=== PATIENT | female | born 1990 | race Two or more races ===

== ENCOUNTER 2019-04-11 16:25 | Inpatient (IN) | payer BC, OTHER ==
[~2019-04-11] VITALS: Ht 170.2 cm; Wt 128.6 kg
[2019-04-11] MEDS ORDERED: ONDANSETRON HCL 4 MG/2 ML VIAL ONE (17:57)
[2019-04-11] MEDS ORDERED: CLINDAMYCIN 600 MG/D5% WATER 50 ML IV ONE (18:05)
[2019-04-11] MEDS ORDERED: LIDOCAINE 2%-EPI 1:200,000 20 ML VIAL IJ ONE (18:05)
[2019-04-11] MEDS ORDERED: MORPHINE SULFATE 4 MG/1ML SYG ONE (18:06)
[2019-04-11 18:12] LABS: BASOPHILS % (AUTO) 0.3 % (0.0-5.0); EOSINOPHILS % (AUTO) 0.1 % (0.0-8.0); HEMATOCRIT 37.5 % (36-48); LYMPHOCYTES % (AUTO) 8.6 % (21.0-51.0); MEAN CORPUSCULAR HEMOGLOBIN 21.8 pg (27.0-33.0); MEAN CORPUSCULAR HGB CONC 31.4 g/dL (32.0-36.0); MEAN CORPUSCULAR VOLUME 69.2 fL (79-99); MONOCYTES % (AUTO) 5.2 % (3.0-13.0); NEUTROPHILS % (AUTO) 85.8 % (40.0-77.0); NUCLEATED RED BLOOD CELLS 0.1 % (0.0-0.19); PLATELET COUNT (AUTO) 622 K/uL (130-400); RED BLOOD CELL COUNT(AUTO) 5.41 MIL/uL (4.00-5.50); RED CELL DISTRIBUTION WIDTH 19.7 % (11.0-15.5); WHITE BLOOD COUNT (AUTO) 24.4 K/uL (4.8-10.8)
[2019-04-11 18:27] LABS: INR 1.02 (0.85-1.15); PARTIAL THROMBOPLASTIN TIME 29.2 SEC (26.3-35.5); PROTHROMBIN TIME 10.7 SEC (9.6-11.6)
[2019-04-11 18:37] LABS: CARBON DIOXIDE 26 mmol/L (21-32); CHLORIDE 100 mmol/L (101-111); CREATININE 1.1 mg/dL (0.5-1.5); GLOMERULAR FILTR. RATE CALC 62 mL/min (>60); GLUCOSE,RANDOM 117 mg/dL (70-105); POTASSIUM 3.5 mmol/L (3.5-5.1); SODIUM SERUM 137 mmol/L (136-145); UREA NITROGEN, BLOOD 16 mg/dL (7-18)
[2019-04-11 18:49] LABS: PLATELET MORPHOLOGY LARGE PLTS PRESENT
[2019-04-11 19:11] LABS: ALANINE AMINOTRANSFERASE 31 U/L (12-78); ALBUMIN 3.6 g/dL (3.5-5.0); ASPARTATE AMINOTRANSFERASE 26 U/L (10-37); BILIRUBIN,TOTAL 0.7 mg/dL (0.2-1.0); CREATINE KINASE, TOTAL 45 U/L (21-232); MYOGLOBIN 44 ng/mL (10-92); TOTAL PROTEIN, SERUM 8.8 g/dL (6.0-8.3); TROPONIN I < 0.04 ng/mL (0.00-0.06)
[2019-04-11 19:57] LABS: APPEARANCE,URINE CLOUDY (CLEAR); BILIRUBIN,URINE MODERATE (NEGATIVE); GLUCOSE, URINE (UA) NEGATIVE (NEGATIVE); KETONES,URINE 15 mg/dL (NEGATIVE); LEUKOCYTE ESTERASE ,URINE SMALL (NEGATIVE); NITRATE,URINE NEGATIVE (NEGATIVE); OCCULT BLOOD,URINE SMALL (NEGATIVE); PROTEIN,URINE 100 mg/dL (NEGATIVE)
[2019-04-11 19:58] LABS: COLOR,URINE DARK YELLOW (YELLOW)
[2019-04-11] MEDS: SODIUM CHLORIDE 0.9% 1000ML 1,000 ML IV SCH (20:06)
[2019-04-11 20:09] LABS: COARSE GRANULAR CASTS,URINE 0-2 /LPF (None Seen); SQUAMOUS EPITHELIAL CELL,UR Few /HPF (0-2)
[2019-04-11 20:10] LABS: HYALINE CASTS, URINE 0-1 /LPF (0-1 /LPF); MUCUS,URINE Many LPF (None Seen); TRICHOMONAS,URINE Few /LPF (None Seen)
[2019-04-11 20:11] LABS: BACTERIA,URINE Moderate /HPF (None Seen)
[2019-04-11] MEDS ORDERED: ACETAMINOPHEN 325 MG TAB PO PRN (20:15)
[2019-04-11] MEDS: FAMOTIDINE 20MG TAB 20 MG TAB PO SCH (21:00)
[2019-04-11] MEDS ORDERED: ACETAMINOPHEN 325 MG TAB ONE (21:05)
[2019-04-11] MEDS ORDERED: FAMOTIDINE 20MG TAB 20 MG TAB ONE (21:05)
[2019-04-11 21:45] VITALS: BP 139/73
[2019-04-11] MEDS: MORPHINE SULFATE 4 MG/1ML SYG IV PRN (23:08)
[2019-04-11 23:30] VITALS: BP 130/72
[2019-04-12 03:30] VITALS: BP 134/69
[2019-04-12] MEDS: CLINDAMYCIN 600 MG/D5% WATER 50 ML IV SCH ×3 (04:32→17:54)
[2019-04-12] MEDS: MORPHINE SULFATE 4 MG/1ML SYG IV PRN ×2 (04:55→11:10)
--- NOTE | 2019-04-12 05:00 | NUR ---
REINFORCED DRESSING I & D PROCEDURE DONE IN ED. PATIENT REPORTS DRESSING FELL OFF WHEN SHE WENT TO THE RESTROOM. APPLIED DRY GAUZE PADS, PACKING REMAINS IN PLACE. PAIN MEDICATION ADMINISTERED. REINFORCED SAFETY PRECAUTIONS, BED LOCKED IN LOWEST POSITION, CALL LIGHT WITHIN REACH.
[2019-04-12 05:13] LABS: HEMATOCRIT 34.5 % (36-48); MEAN CORPUSCULAR HEMOGLOBIN 21.7 pg (27.0-33.0); MEAN CORPUSCULAR HGB CONC 31.1 g/dL (32.0-36.0); MEAN CORPUSCULAR VOLUME 69.9 fL (79-99); PLATELET COUNT (AUTO) 695 K/uL (130-400); RED BLOOD CELL COUNT(AUTO) 4.94 MIL/uL (4.00-5.50); RED CELL DISTRIBUTION WIDTH 19.9 % (11.0-15.5); WHITE BLOOD COUNT (AUTO) 25.9 K/uL (4.8-10.8)
[2019-04-12 05:18] LABS: HEMOGLOBIN A1C 5.8 % (4.0-6.0)
[2019-04-12 05:22] LABS: ALBUMIN 3.1 g/dL (3.5-5.0); BILIRUBIN,TOTAL 0.6 mg/dL (0.2-1.0); CREATININE 0.9 mg/dL (0.5-1.5); POTASSIUM 3.7 mmol/L (3.5-5.1); TOTAL PROTEIN, SERUM 8.2 g/dL (6.0-8.3)
[2019-04-12 08:00] VITALS: BP 164/70
[2019-04-12] MEDS: FAMOTIDINE 20MG TAB 20 MG TAB PO SCH ×2 (10:00→20:20)
[2019-04-12] MEDS: MORPHINE SULFATE 2 MG/ML 1ML SYG IV PRN ×2 (10:01→21:33)
[2019-04-12] MEDS ORDERED: HYDRALAZINE HCL 20 MG/ML VIAL IV PRN (10:30)
--- NOTE | 2019-04-12 11:00 | NUR ---
MD ROUNDS DR. CARLSON VISITED WITH PATIENT. POC DISCUSSED. NEW ORDERS RECEIVED AND CARRIED OUT.
[2019-04-12 11:49] VITALS: BP 127/69
[2019-04-12] MEDS: HEPARIN SODIUM 5000UNIT/ML 1ML VIAL SQ SCH ×2 (11:55→21:42)
--- NOTE | 2019-04-12 12:05 | NUR ---
WOUND CULTURES SEND TO LAB.
--- NOTE | 2019-04-12 13:19 | NUR ---
DCP CM met with pt discussed dc plans. Pt is independent prior to admission, lives at home with boyfriend Nawaf Maurer. Denies any equipments/services. Pt feels safe to go back home, still drives and works, boyfriend able to assist with transportations and needs. DC plan to home once stable. CM to cont to follow up. Addendum: 04/12/19 at 1320 by JENNA CHAVIS LVN CM Amended: Links added.
[2019-04-12 16:00] VITALS: BP 132/85
[2019-04-12] MEDS: SODIUM CHLORIDE 0.9% 1000ML 1,000 ML IV SCH (16:18)
[2019-04-12 20:20] VITALS: BP 127/68
[2019-04-12 23:48] VITALS: BP 117/62
[2019-04-13] MEDS: CLINDAMYCIN 600 MG/D5% WATER 50 ML IV SCH ×3 (03:11→17:36)
[2019-04-13] MEDS: MORPHINE SULFATE 2 MG/ML 1ML SYG IV PRN ×2 (03:12→10:00)
[2019-04-13 04:10] VITALS: BP 118/63
[2019-04-13 06:17] LABS: HEMATOCRIT 30.2 % (36-48); MEAN CORPUSCULAR HEMOGLOBIN 22.1 pg (27.0-33.0); MEAN CORPUSCULAR HGB CONC 31.7 g/dL (32.0-36.0); MEAN CORPUSCULAR VOLUME 69.8 fL (79-99); PLATELET COUNT (AUTO) 512 K/uL (130-400); RED BLOOD CELL COUNT(AUTO) 4.33 MIL/uL (4.00-5.50); RED CELL DISTRIBUTION WIDTH 19.8 % (11.0-15.5)
[2019-04-13 06:34] LABS: CREATININE 0.7 mg/dL (0.5-1.5); POTASSIUM 3.4 mmol/L (3.5-5.1)
[2019-04-13 07:30] VITALS: BP 120/72
[2019-04-13] MEDS: FAMOTIDINE 20MG TAB 20 MG TAB PO SCH ×2 (09:59→22:12)
[2019-04-13] MEDS: HEPARIN SODIUM 5000UNIT/ML 1ML VIAL SQ SCH ×2 (10:30→23:49)
[2019-04-13 11:00] VITALS: BP 121/73
[2019-04-13] MEDS: SODIUM CHLORIDE 0.9% 1000ML 1,000 ML IV SCH ×2 (12:28→22:06)
--- NOTE | 2019-04-13 14:00 | NUR ---
CM Note: follow up CM met with pt aware family and pt will have to be taught how to do dressing changes at home. Pt states she will have boyfriend come so that nurse can teach how to do dressing. Made aware anticipated dcp plan 24-48hrs pending ID abx recs. Pt verbalized understanding. Primary nurse aware. CM to cont to follow up.
[2019-04-13] MEDS: LEVOFLOXACIN 750 MG TABLET PO SCH (14:12)
[2019-04-13 16:00] VITALS: BP 143/101
[2019-04-13] MEDS: MORPHINE SULFATE 4 MG/1ML SYG IV PRN (17:37)
[2019-04-13 19:10] VITALS: BP 109/59
--- NOTE | 2019-04-13 21:35 | NUR ---
WOUND CARE REMOVED IODEFORM FROM ABSCESS. CLEANED WITH SALINE, PAT DRIED. IODEFORM INSERTED INTO ABSCESS. COVERED WITH GAUZE AND SECURED WITH TAPE. PATIENT TOLERATED WELL, SLIGHT DISCOMFORT AND PAIN REPORTED. PHOTO OF WOUND TAKEN AND IN THE CHART.
[2019-04-14] VITALS (7 sets, daily range): BP systolic 109–128; BP diastolic 68–85
[2019-04-14] MEDS: MORPHINE SULFATE 2 MG/ML 1ML SYG IV PRN ×3 (01:00→22:08)
[2019-04-14] MEDS: CLINDAMYCIN 600 MG/D5% WATER 50 ML IV SCH ×3 (02:25→17:48)
[2019-04-14 06:07] LABS: HEMATOCRIT 30.8 % (36-48); MEAN CORPUSCULAR HEMOGLOBIN 21.6 pg (27.0-33.0); MEAN CORPUSCULAR HGB CONC 31.2 g/dL (32.0-36.0); MEAN CORPUSCULAR VOLUME 69.3 fL (79-99); NUCLEATED RED BLOOD CELLS 0.1 % (0.0-0.19); PLATELET COUNT (AUTO) 533 K/uL (130-400); RED BLOOD CELL COUNT(AUTO) 4.44 MIL/uL (4.00-5.50); RED CELL DISTRIBUTION WIDTH 19.7 % (11.0-15.5); WHITE BLOOD COUNT (AUTO) 11.3 K/uL (4.8-10.8)
[2019-04-14 06:22] LABS: CREATININE 0.7 mg/dL (0.5-1.5); POTASSIUM 3.3 mmol/L (3.5-5.1)
[2019-04-14] MEDS: ONDANSETRON HCL 4 MG/2 ML VIAL IV PRN (09:21)
[2019-04-14] MEDS: FAMOTIDINE 20MG TAB 20 MG TAB PO SCH ×2 (09:31→22:01)
[2019-04-14] MEDS ORDERED: POTASSIUM CHLORIDE 20 MEQ ERTAB PO SCH (09:45)
[2019-04-14] MEDS: HEPARIN SODIUM 5000UNIT/ML 1ML VIAL SQ SCH ×2 (10:42→22:02)
[2019-04-14] MEDS: SODIUM CHLORIDE 0.9% 1000ML 1,000 ML IV SCH ×2 (13:17→22:00)
[2019-04-14] MEDS: LEVOFLOXACIN 750 MG TABLET PO SCH (13:18)
[2019-04-15 00:05] VITALS: BP 124/79
[2019-04-15] MEDS: CLINDAMYCIN 600 MG/D5% WATER 50 ML IV SCH ×3 (02:14→18:02)
[2019-04-15] MEDS: SODIUM CHLORIDE 0.9% 1000ML 1,000 ML IV SCH ×2 (04:06→14:06)
[2019-04-15 04:10] VITALS: BP 122/76
[2019-04-15 06:30] LABS: HEMATOCRIT 31.9 % (36-48); MEAN CORPUSCULAR HGB CONC 31.5 g/dL (32.0-36.0); MEAN CORPUSCULAR VOLUME 69.8 fL (79-99); PLATELET COUNT (AUTO) 508 K/uL (130-400); RED BLOOD CELL COUNT(AUTO) 4.57 MIL/uL (4.00-5.50); RED CELL DISTRIBUTION WIDTH 19.8 % (11.0-15.5); WHITE BLOOD COUNT (AUTO) 11.8 K/uL (4.8-10.8)
[2019-04-15 06:40] LABS: CREATININE 0.7 mg/dL (0.5-1.5); POTASSIUM 3.5 mmol/L (3.5-5.1)
--- NOTE | 2019-04-15 07:50 | NUR ---
PATIENT UPDATE PT WITH DISCHARGE ORDERS TO GO HOME BUT NEED SOMEBODY TO BE TRAINED TO DO HER DRESSING CHANGE ON THE LEFT BUTTOCK WOUND. PACKING SUPPOSED TO HAVE FALLEN AT SHIFT CHANGE AND SHE WAS ANXIOUSLY CALLING FOR SOMEBODY TO DO HER WOUND CARE. ADVISED TO MOVE HER BOWELS THEN TAKE A SHOWER, MORPHINE 2 MG GIVEN SLOW IV PUSH GIVEN BEFORE THE IODOFORM PACKING WAS INSERTED AFTER SITE WAS CLEANSED WITH SALINE. PT SCREAMING IN BETWEEN, CRYING IN BETWEEN, WITH HX OF ANXIETY AND DEPRESSION.
[2019-04-15 08:00] VITALS: BP 140/70
[2019-04-15] MEDS: MORPHINE SULFATE 4 MG/1ML SYG IV PRN (09:41)
[2019-04-15] MEDS: FAMOTIDINE 20MG TAB 20 MG TAB PO SCH (09:41)
[2019-04-15] MEDS: HEPARIN SODIUM 5000UNIT/ML 1ML VIAL SQ SCH (09:57)
[2019-04-15 12:00] VITALS: BP 119/72
[2019-04-15] MEDS: ONDANSETRON HCL 4 MG/2 ML VIAL IV PRN (12:38)
[2019-04-15] MEDS: LEVOFLOXACIN 750 MG TABLET PO SCH (13:28)
[2019-04-15] MEDS: MORPHINE SULFATE 2 MG/ML 1ML SYG IV PRN (13:29)
[2019-04-15 16:00] VITALS: BP 144/95
--- NOTE | 2019-04-15 17:00 | NUR ---
cm note met with patient and state unable to have anyone assist with her wound care, has tried multiple people. spoke to Jean Claude adorno CM director. and received approval for wound care center, and ED on Thursday and thursday for pt to come in and receive the wound care. updated pt on appt times for weekends,thru ER and appt Thursday for 1st visit at wound center. pt verbalizes understanding. provided info in writing to pt. udpated primary nurse Rob.
--- NOTE | 2019-04-15 20:30 | NUR ---
DC PATIENT GIVEN DISCHARGE INSTRUCTIONS AND NEW RX. PATIENT ABLE TO VERBALIZE BACK UNDERSTANDING TO ALL DISCHARGE INSTRUCTIONS AND CARE FOR WOUND AT DESIGNATED LOCATIONS AND TIMES SET UP BY CASE MANAGEMENT. ALL QUESTIONS AND CONCERNS ADDRESSED PRIOR TO DISCHARGE. PIV REMOVED WITH CATHETER INTACT. NO DISTRESS VERBALIZED AT THIS TIME. ALL PERSONAL BELONGINGS TAKEN WITH PATIENT. TRANSPORTED TO PRIVATE VEHICLE VIA W/C BY STAFF MEMBER.
== END 2019-04-15 20:40 | disposition home or self-care (01) | DRG 872 ==
LOC: EDH 16:25 → OBSVTOIN 16:26 → EDHIP 16:26 → 3DH 21:43
PROVIDERS: ADMIT Internal Medicine; ATTEND Internal Medicine
PROC: 0Y910ZZ Drainage of Left Buttock, Open Approach (ICD-10-PCS; principal; 2019-04-11)
DX: A41.9 Sepsis, unspecified organism (principal); L05.01 Pilonidal cyst with abscess; L03.90 Cellulitis, unspecified; Z68.41 Body mass index [BMI] 40.0-44.9, adult; E66.01 Morbid (severe) obesity due to excess calories; J45.909 Unspecified asthma, uncomplicated; K21.9 Gastro-esophageal reflux disease without esophagitis; F32.9 Major depressive disorder, single episode, unspecified; F41.9 Anxiety disorder, unspecified; Z88.0 Allergy status to penicillin; Z88.8 Allergy status to other drugs, medicaments and biological substances
CPT/HCPCS: 36415; 71045; 72131; 80048; 80053; 81001; 82550; 82948; 83036; 83605; 83874; 84484; 84703; 85025; 85027; 85610; 85730; 87040; 87070; 87088; 93005; A6266; G0378; J1644; J2270; J2405; J3490

== ENCOUNTER → 2019-04-18 | Outpatient (CLI) | payer SELFPAY ==
[~2019-04-18] MED LIST: LIDOCAINE HCL 2% JELLY 5 ML TP ONE
[2019-04-18 14:11] VITALS: BP 144/93
== END | disposition home or self-care (01) ==
LOC: WHH 09:30
PROVIDERS: ATTEND Surgery
DX: S31.829A Unspecified open wound of left buttock, initial encounter (principal); S31.000A Unspecified open wound of lower back and pelvis without penetration into retroperitoneum, initial encounter; K61.1 Rectal abscess; J45.909 Unspecified asthma, uncomplicated; K21.9 Gastro-esophageal reflux disease without esophagitis; K29.70 Gastritis, unspecified, without bleeding; E66.01 Morbid (severe) obesity due to excess calories; F41.9 Anxiety disorder, unspecified; F32.9 Major depressive disorder, single episode, unspecified; Z88.8 Allergy status to other drugs, medicaments and biological substances; Z88.0 Allergy status to penicillin; X58.XXXA Exposure to other specified factors, initial encounter; Y93.89 Activity, other specified; Y92.89 Other specified places as the place of occurrence of the external cause; Y99.8 Other external cause status
CPT/HCPCS: 99215; A6021

== ENCOUNTER → 2019-04-20 | Outpatient (CLI) | payer SELFPAY ==
[2019-04-20 13:33] VITALS: BP 110/70
== END | disposition home or self-care (01) ==
LOC: WHH 13:00
PROVIDERS: ATTEND Surgery
DX: S31.000D Unspecified open wound of lower back and pelvis without penetration into retroperitoneum, subsequent encounter (principal); K61.1 Rectal abscess; J45.909 Unspecified asthma, uncomplicated; K21.9 Gastro-esophageal reflux disease without esophagitis; K29.70 Gastritis, unspecified, without bleeding; E66.01 Morbid (severe) obesity due to excess calories; F41.9 Anxiety disorder, unspecified; F32.9 Major depressive disorder, single episode, unspecified; Z88.8 Allergy status to other drugs, medicaments and biological substances; Z88.0 Allergy status to penicillin; X58.XXXD Exposure to other specified factors, subsequent encounter
CPT/HCPCS: 99211; A6021

== ENCOUNTER → 2019-04-22 | Outpatient (CLI) | payer SELFPAY ==
[2019-04-22 13:24] VITALS: BP 138/87
== END | disposition home or self-care (01) ==
LOC: WHH 10:15
PROVIDERS: ATTEND Surgery
DX: S31.000D Unspecified open wound of lower back and pelvis without penetration into retroperitoneum, subsequent encounter (principal); K61.1 Rectal abscess; J45.909 Unspecified asthma, uncomplicated; K21.9 Gastro-esophageal reflux disease without esophagitis; K29.70 Gastritis, unspecified, without bleeding; E66.01 Morbid (severe) obesity due to excess calories; F41.9 Anxiety disorder, unspecified; F32.9 Major depressive disorder, single episode, unspecified; Z88.8 Allergy status to other drugs, medicaments and biological substances; Z88.0 Allergy status to penicillin; X58.XXXD Exposure to other specified factors, subsequent encounter
CPT/HCPCS: 99211

== ENCOUNTER → 2019-04-26 | Outpatient (CLI) | payer SELFPAY ==
[2019-04-26 10:27] VITALS: BP 132/88
== END | disposition home or self-care (01) ==
LOC: WHH 09:45
PROVIDERS: ATTEND Surgery
DX: S31.000D Unspecified open wound of lower back and pelvis without penetration into retroperitoneum, subsequent encounter (principal); K61.1 Rectal abscess; J45.909 Unspecified asthma, uncomplicated; K21.9 Gastro-esophageal reflux disease without esophagitis; K29.70 Gastritis, unspecified, without bleeding; E66.01 Morbid (severe) obesity due to excess calories; F41.9 Anxiety disorder, unspecified; F32.9 Major depressive disorder, single episode, unspecified; Z88.8 Allergy status to other drugs, medicaments and biological substances; Z88.0 Allergy status to penicillin; X58.XXXD Exposure to other specified factors, subsequent encounter
CPT/HCPCS: 99214; A6021

== ENCOUNTER → 2019-04-29 | Outpatient (CLI) | payer SELFPAY ==
[2019-04-29 10:56] VITALS: BP 144/99
== END | disposition home or self-care (01) ==
LOC: WHH 10:30
PROVIDERS: ATTEND Surgery
DX: T81.89XD Other complications of procedures, not elsewhere classified, subsequent encounter (principal); K61.1 Rectal abscess; J45.909 Unspecified asthma, uncomplicated; K21.9 Gastro-esophageal reflux disease without esophagitis; K29.70 Gastritis, unspecified, without bleeding; E66.01 Morbid (severe) obesity due to excess calories; F41.9 Anxiety disorder, unspecified; F32.9 Major depressive disorder, single episode, unspecified; Z88.8 Allergy status to other drugs, medicaments and biological substances; Z88.0 Allergy status to penicillin; Y83.8 Other surgical procedures as the cause of abnormal reaction of the patient, or of later complication, without mention of misadventure at the time of the procedure
CPT/HCPCS: 99211; A6021

== ENCOUNTER → 2019-05-05 | Outpatient (CLI) | payer SELFPAY ==
[2019-05-05 15:16] VITALS: BP 140/96
== END | disposition home or self-care (01) ==
LOC: WHH 14:00
PROVIDERS: ATTEND Surgery
DX: T81.89XD Other complications of procedures, not elsewhere classified, subsequent encounter (principal); J45.909 Unspecified asthma, uncomplicated; K21.9 Gastro-esophageal reflux disease without esophagitis; K29.70 Gastritis, unspecified, without bleeding; E66.01 Morbid (severe) obesity due to excess calories; F41.9 Anxiety disorder, unspecified; F32.9 Major depressive disorder, single episode, unspecified; Z88.8 Allergy status to other drugs, medicaments and biological substances; Z88.0 Allergy status to penicillin; Y83.8 Other surgical procedures as the cause of abnormal reaction of the patient, or of later complication, without mention of misadventure at the time of the procedure
CPT/HCPCS: 99211; A6021

== ENCOUNTER → 2019-05-09 | Outpatient (CLI) | payer SELFPAY ==
[2019-05-09 13:33] VITALS: BP 133/90
== END | disposition home or self-care (01) ==
LOC: WHH 11:00
PROVIDERS: ATTEND Surgery
DX: T81.89XD Other complications of procedures, not elsewhere classified, subsequent encounter (principal); J45.909 Unspecified asthma, uncomplicated; K21.9 Gastro-esophageal reflux disease without esophagitis; K29.70 Gastritis, unspecified, without bleeding; E66.01 Morbid (severe) obesity due to excess calories; F41.9 Anxiety disorder, unspecified; F32.9 Major depressive disorder, single episode, unspecified; Z88.0 Allergy status to penicillin; Z88.8 Allergy status to other drugs, medicaments and biological substances; Y83.8 Other surgical procedures as the cause of abnormal reaction of the patient, or of later complication, without mention of misadventure at the time of the procedure
CPT/HCPCS: 99214; A6021

== ENCOUNTER → 2019-05-12 | Outpatient (CLI) | payer SELFPAY ==
[2019-05-12 14:45] VITALS: BP 144/106
== END | disposition home or self-care (01) ==
LOC: WHH 14:00
PROVIDERS: ATTEND Surgery
DX: T81.89XD Other complications of procedures, not elsewhere classified, subsequent encounter (principal); J45.909 Unspecified asthma, uncomplicated; K21.9 Gastro-esophageal reflux disease without esophagitis; K29.70 Gastritis, unspecified, without bleeding; E66.01 Morbid (severe) obesity due to excess calories; F41.9 Anxiety disorder, unspecified; F32.9 Major depressive disorder, single episode, unspecified; Z88.0 Allergy status to penicillin; Z88.8 Allergy status to other drugs, medicaments and biological substances; Y83.8 Other surgical procedures as the cause of abnormal reaction of the patient, or of later complication, without mention of misadventure at the time of the procedure
CPT/HCPCS: 99211; A6021

== ENCOUNTER 2019-05-17 11:30 | Outpatient (CLI) | payer SELFPAY ==
[2019-05-17 13:13] VITALS: BP 142/91
== END 2019-05-17 14:02 | disposition home or self-care (01) ==
LOC: WHH 11:30
PROVIDERS: ATTEND Surgery
DX: T81.89XD Other complications of procedures, not elsewhere classified, subsequent encounter (principal); J45.909 Unspecified asthma, uncomplicated; K21.9 Gastro-esophageal reflux disease without esophagitis; K29.70 Gastritis, unspecified, without bleeding; E66.01 Morbid (severe) obesity due to excess calories; F41.9 Anxiety disorder, unspecified; F32.9 Major depressive disorder, single episode, unspecified; Z88.0 Allergy status to penicillin; Z88.8 Allergy status to other drugs, medicaments and biological substances; Y83.8 Other surgical procedures as the cause of abnormal reaction of the patient, or of later complication, without mention of misadventure at the time of the procedure
CPT/HCPCS: 99214